=== PATIENT | male | born 1990 | race Caucasian/White ===

== ENCOUNTER 2020-09-28 16:37 | Outpatient (REF) | payer MEDICARE, MEDICAID, SELFPAY | END 2020-09-28 16:38 | disposition home or self-care (01) | LOC: HO.LNP 16:37 | PROVIDERS: Visit Provider Nurse Practitioner Family | DX: Z20.822 Contact with and (suspected) exposure to COVID-19 (principal) | CPT/HCPCS: U0003; U0005 ==

== ENCOUNTER 2021-02-06 07:53 | Outpatient (REF) | payer MEDICARE, MEDICAID, SELFPAY ==
--- NOTE | ~2021-02-06 | MR_ITS ---
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 COMPARISON: 09/24/2016 MRI. TECHNIQUE: Multiplanar multisequence MR imaging of the brain was done without IV contrast. FINDINGS: BRAIN VOLUME: Redemonstrated is disproportionate diffuse cerebral volume loss, similar in appearance to the previous study. No significant volume loss seen involving the midbrain, hosea, medulla or supratentorial brain. STRUCTURAL: No malformations. BRAIN AND MENINGES: DWI sequence demonstrates no restricted diffusion. Specifically, there is no evidence for acute or subacute cerebral ischemia. The brain parenchyma is normal in signal intensity. There is no evidence for hemorrhage, hemosiderin staining or abnormal mineral deposition. No extra-axial fluid collections, space-occupying process or mass effect. VENTRICLES AND SUBARACHNOID SPACES: The ventricular system is within normal limits in appearance without hydrocephalus. Prominent subarachnoid spaces in the posterior fossa are consistent with cerebellar volume loss stable in appearance. ORBITAL STRUCTURES: The visualized orbital structures are grossly unremarkable within the limitations of the study. VASCULAR: Signal voids are noted in the visualized major intracranial vessels. SINUSES AND OSSEOUS STRUCTURES: Unremarkable. MR/MR head/brain wo con IMPRESSION: 1. Redemonstrated is diffuse cerebellar volume loss stable in appearance from previous exam, consistent with diffuse cerebellar atrophy. 2. Otherwise normal exam with no interval change.
[2021-02-06 09:52] LABS: Erythrocyte Sedimentation Rate 2 MM/HR (0-15)
[2021-02-06 10:04] LABS: Folate 19.1 ng/mL (> or = 4.0); Vitamin B12 471 pg/mL (200-900)
[2021-02-08 13:51] LABS: Anti Nuclear Antibody Screen NEGATIVE (NEGATIVE)
[2021-02-10 12:36] LABS: Vitamin C 1.2 mg/dL (0.2-2.1)
[2021-02-10 15:10] LABS: Alpha-Tocopherol 13.2 mg/L (5.7-19.9); Beta-Gamma Tocopherol <1.0 mg/L (<=4.3)
== END 2021-02-06 07:54 | disposition home or self-care (01) ==
LOC: HO.MRI 07:53
PROVIDERS: PCP Nurse Practitioner Family; Visit Provider Psychiatry & Neurology Neurology
DX: G23.8 Other specified degenerative diseases of basal ganglia (principal)
CPT/HCPCS: 36415; 70551; 82180; 82607; 82746; 84446; 85652; 86038; 86039

== ENCOUNTER 2021-08-09 07:03 | Outpatient (REF) | payer MEDICARE, MEDICAID, SELFPAY ==
[2021-08-09 11:56] LABS: Alanine Aminotransferase 31 U/L (0-40); Albumin Level 4.1 g/dL (3.5-5.0); Alkaline Phosphatase 75 U/L (39-117); Anion Gap 10 (12-20); Aspartate Amino Transferase 20 U/L (5-37); Bilirubin Total 0.9 mg/dL (0.0-1.0); Blood Urea Nitrogen 16 mg/dL (9-16); Calcium 8.8 mg/dL (8.4-10.2); Carbon Dioxide 28 mmol/L (22-29); Chloride 107 mmol/L (96-108); Cholesterol 151 mg/dL; Estimated Glomerular Filt Rate > 60; Glucose Fasting 91 mg/dL (60-99); HDL Cholesterol 32 mg/dL; LDL Cholesterol Calculated 99 mg/dl; Potassium 4.4 mmol/L (3.3-5.1); Sodium 141 mmol/L (135-145); Total Protein 6.7 g/dL (6.5-8.0); Triglycerides 104 mg/dL
[2021-08-09 12:01] LABS: TSH reflex Free T4 1.22 uIU/mL (0.32-4.0)
== END 2021-08-09 07:04 | disposition home or self-care (01) ==
LOC: HO.HMGCLDS 07:03
PROVIDERS: PCP Nurse Practitioner Family; Visit Provider Nurse Practitioner Family
DX: Z00.00 Encounter for general adult medical examination without abnormal findings (principal); R29.6 Repeated falls
CPT/HCPCS: 36415; 80053; 80061; 84443

== ENCOUNTER 2021-09-18 11:28 | Outpatient (REF) | payer MEDICARE, MEDICAID, SELFPAY | END 2021-09-18 11:29 | disposition home or self-care (01) | LOC: HO.LNP 11:28 | PROVIDERS: Visit Provider Nurse Practitioner Family | DX: L02.511 Cutaneous abscess of right hand (principal) | CPT/HCPCS: 87071; 87077; 87186; 87205 ==

== ENCOUNTER 2022-07-06 15:55 | Emergency (ER) | payer MEDICARE, MEDICAID, SELFPAY ==
--- NOTE | ~2022-07-06 | XR_ITS ---
EXAMINATION: XR SHOULDER, LEFT CLINICAL INFORMATION: Post reduction shoulder dislocation COMPARISON: Prior exam left shoulder 07/06/2022, 4:24 PM TECHNIQUE: Three views of the left shoulder. XR/XR shoulder LT min 2V FINDINGS/IMPRESSION: There has been successful reduction of shoulder dislocation. No fracture. IMPRESSION: Normal left shoulder.
--- NOTE | ~2022-07-06 | XR_ITS ---
EXAMINATION: XR SHOULDER, LEFT CLINICAL INFORMATION: Left shoulder pain COMPARISON: None available. TECHNIQUE: AP external rotation, Grashey, scapular Y, and axillary views of the left shoulder. FINDINGS: Humeral head is anteriorly dislocated from the glenoid. No acute fracture seen. XR/XR shoulder LT min 2V IMPRESSION: Anterior shoulder joint dislocation
[2022-07-06 16:00] VITALS: BP 135/99; PULSE 69; RESP 16; TEMP 36.7; O2SAT 97; BMI 32.3
--- NOTE | 2022-07-06 16:00 | ED.FALL ---
HPI - Fall General Chief Complaint: Extremity Injury, Upper <DINH Jones Last Filed: 07/06/22 16:04> Stated Complaint: fall, L shoulder pain <DINH Jones Last Filed: 07/06/22 16:04> Time Seen by Provider: 07/06/22 16:23 <DINH Jones Last Filed: 07/06/22 16:04> Source: patient <DINH Sloan Last Filed: 07/07/22 09:27> Mode of arrival: ambulatory <DINH Sloan Last Filed: 07/07/22 09:27> Limitations: no limitations <DINH Sloan Last Filed: 07/07/22 09:27> History of Present Illness HPI Narrative: This is a 32-year-old male History of cerebral ataxia presenting to the ED w/ complaints of left shoulder pain, deformity and innability to move L shoulder s/p fall while at day program and gardening. Patients mom at bed side states he falls alot due to tremors and unsteady gait. Today when he feel he fell right onto his left shoulder and since then has not been able to mvoe it. Denies numbness or tingling. No head strike or LOC, not on thinners. No traumatic injury to chest, abdomen or pelvis. Patient denies CP, sob, headache, vision changes, nausea, vomiting, abd pain GC 15 <DINH Sloan Last Filed: 07/07/22 09:27> Related Data Home Medications: Previous Rx's Medication Instructions Recorded sulfamethoxazole 800 1 tab PO BID 5 days #10 tabs 09/18/21 mg-trimethoprim 160 mg tablet (Bactrim DS) ketorolac 10 mg tablet 10 mg PO TID PRN pain 5 days #15 07/06/22 tabs morphine 15 mg immediate release 15 mg PO Q6H PRN pain 5 days #10 07/06/22 tablet tabs <DINH Jones Last Filed: 07/06/22 16:04> Allergies/Adverse Reactions: Allergies Allergy/AdvReac Type Severity Reaction Status Date / Time No Known Allergies Allergy Verified 09/18/21 08:12 <DINH Jones Last Filed: 07/06/22 16:04> Review of Systems Review of Systems: Constitutional : No Weight loss, No Fever, No Chills, No Fatigue, No Malaise ENT/Mouth : No sore throat, No Rhinorrhea Eyes: No Eye Pain, No Swelling, No Redness Cardiovascular : No Chest Pain, No SOB, No Dyspnea on Exertion, No Orthopnea, No Edema, No Palpitations Respiratory : No Cough, No Sputum, No Wheezing Gastrointestinal : No Nausea, No Vomiting, No Diarrhea, No Constipation, No abdominal Pain, No Hematochezia, No Melena Genitourinary : No Dysuria, No Urinary Frequency, No Hematuria, Musculoskeletal : + joint pain, No Myalgias, + Joint Swelling Skin : No Skin Lesions, No rash Neuro : No Weakness, No Numbness, No Dizziness, No Headache Psych : No Anxiety/Panic, No Depression All other systems reviewed and are negative <DINH Sloan - Last Filed: 07/07/22 09:27> Yes all other systems are reviewed and are negative <DINH Sloan - Last Filed: 07/07/22 09:27> [facility] Past Medical History Attestation statement: The following information was validated with the patient. <DINH Sloan - Last Filed: 07/07/22 09:27> Source: old records reviewed and nursing notes reviewed <DINH Sloan - Last Filed: 07/07/22 09:27> Medical History: Medical History Cerebellar ataxia Cerebellar atrophy Olivopontocerebellar atrophy Sleep walking <DINH Jones - Last Filed: 07/06/22 16:04> Social History Social History: Social History Alcohol intake: never Patient Tobacco Use Status: Never used Tobacco Smoked in Last 30 Days: No Use of substances other than those prescribed or required for medical reasons: No Advance Directives: No Advance Directives Information Provided: No Current occupational status: disabled <DINH Jones Last Filed: 07/06/22 16:04> Physical Exam Vital Signs: Vital Signs: Last Vital Signs Temp 98.6 F 07/06/22 19:58 Pulse 109 H 07/06/22 19:58 Resp 16 07/06/22 19:58 BP 120/77 07/06/22 19:58 Pulse Ox 94 07/06/22 19:58 O2 Del Method Room Air 07/06/22 19:58 BMI result Body Mass Index 32.3 <DINH Jones - Last Filed: 07/06/22 16:04> Vital Signs: Last Vital Signs Temp 98.6 F 07/06/22 19:58 Pulse 109 H 07/06/22 19:58 Resp 16 07/06/22 19:58 BP 120/77 07/06/22 19:58 Pulse Ox 94 07/06/22 19:58 O2 Del Method Room Air 07/06/22 19:58 BMI result Body Mass Index 32.3 vss <DINH Sloan - Last Filed: 07/07/22 09:27> Appearance: Alert.? Oriented X3.? No acute distress.? Head: Normocephalic, atraumatic, no step-offs or deformities Eyes: Pupils equal, round and reactive to light.?EOMI CVS: Normal heart rate and rhythm.? Pulses normal.? Respiratory: No respiratory distress.? Breath sounds normal.? Abdomen: Soft and nontender.? Skin: Skin warm and dry.? Normal skin color.? Normal skin turgor.? Extremities: No lower extremity edema.? No calf ttp. 5/5 strength to bilateral upper and lower extremities 2+ radial pulses equal and b/l. Cap refill < 2 seconds to b/k UE digits. + deformity to L. shoulder. Normal AC joints b/l. Normal handgrip. Normal sensation to b/l UE Back: No midline tenderness, no C-spine tenderness, full range of motion, no CVA tenderness bilaterally Neuro: Oriented X 3.? No motor deficit.? No sensory deficit. CN 2-12 intact. Ambulates w/ tremor but steady gait. 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 At baseline patient unsteady gait. Denies head trauma or LOC +L shoulder deformity., suspected dislocated. NV intact distally XR ordered Full HPI, ROS and PE to be performed by primary ED provider. <DINH Jones - Last Filed: 07/06/22 16:04> Reevaluation(s) Reevaluation #1: Lt shoulder xray with anterior shoulder dislocation. A Left intrarticular block was done to L. shoulder tollerated well. Verbal consent was obtained from patient &mother. Reduction of L shoulder done at the bedside using traction and counter traction w/ gentle external rotation. Patient tolerated well and immediately placed in sling. <DINH Sloan - Last Filed: 07/07/22 09:27> Time: 19:15 <DINH Sloan - Last Filed: 07/07/22 09:27> Reevaluation #2: Successfully reduce left shoulder, patient tolerated procedure well gave a sling. Will have him follow-up with orthopedics <DINH Sloan - Last Filed: 07/07/22 09:27> Medications Administered Discontinued Medications Generic Name Dose Route Start Last Admin Trade Name Freq PRN Reason Stop Dose Admin Ketorolac Tromethamine 30 mg 07/06/22 18:55 07/06/22 19:04 Ketorolac Tromethamine 15 Mg/Ml Vial IVPUSH 07/06/22 18:56 30 mg ONCE ONE Administration Lidocaine HCl 20 ml 07/06/22 18:23 07/06/22 18:45 Lidocaine Hcl 1 % 20 Ml Vial SUBCUT 07/06/22 18:24 20 ml ONCE ONE Administration Lorazepam 1 mg 07/06/22 16:38 07/06/22 16:43 Lorazepam 1 Mg Tablet PO 07/06/22 16:39 1 mg ONCE ONE Administration Morphine Sulfate 4 mg 07/06/22 17:22 07/06/22 17:37 Morphine Sulfate 4 Mg/Ml Cartridge IVPUSH 07/06/22 17:23 4 mg ONCE ONE Administration Protocol <DINH Jones - Last Filed: 07/06/22 16:04> Medications Administered Discontinued Medications Generic Name Dose Route Start Last Admin Trade Name Freq PRN Reason Stop Dose Admin Ketorolac Tromethamine 30 mg 07/06/22 18:55 07/06/22 19:04 Ketorolac Tromethamine 15 Mg/Ml Vial IVPUSH 07/06/22 18:56 30 mg ONCE ONE Administration Lidocaine HCl 20 ml 07/06/22 18:23 07/06/22 18:45 Lidocaine Hcl 1 % 20 Ml Vial SUBCUT 07/06/22 18:24 20 ml ONCE ONE Administration Lorazepam 1 mg 07/06/22 16:38 07/06/22 16:43 Lorazepam 1 Mg Tablet PO 07/06/22 16:39 1 mg ONCE ONE Administration Morphine Sulfate 4 mg 07/06/22 17:22 07/06/22 17:37 Morphine Sulfate 4 Mg/Ml Cartridge IVPUSH 07/06/22 17:23 4 mg ONCE ONE Administration Protocol <DINH Sloan - Last Filed: 07/07/22 09:27> Medical Decision Making Medical Decision Making MDM Narrative: 1820 32 yo M presents w/ R. shoulder pain sp fall onto shoulder, unable to move it. This occured SERVICE ORDER CLERK PE w/ No lower extremity edema.? No calf ttp. 5/5 strength to bilateral upper and lower extremities 2+ radial pulses equal and b/l. Cap refill < 2 seconds to b/k UE digits. + deformity to L. shoulder. Normal AC joints b/l. Normal handgrip. Normal sensation to b/l UE Likely dislocation. Will rule out fx. No signs of threatened limb or NV compromise Plan- imaging <DINH Sloan Last Filed: 07/07/22 09:27> Differential Diagnosis Differential Diagnoses: The differential diagnosis associated with the presentation includes <DINH Sloan Last Filed: 07/07/22 09:27> Likely dislocation. Will rule out fx. No signs of threatened limb or NV compromise <DINH Sloan Last Filed: 07/07/22 09:27> Admission/Observation Consideration of admission/observation: Escalation of care including admission/observation considered <DINH Sloan Last Filed: 07/07/22 09:27> vonnieley <DINH Sloan - Last Filed: 07/07/22 09:27> Independent Interpretation I performed an independent interpretation of an: Plain X-Ray <DINH Sloan - Last Filed: 07/07/22 09:27> Radiology Impression Discussion of test interpretation with radiology: I have reviewed the radiologist's reading. <DINH Sloan - Last Filed: 07/07/22 09:27> Prescription Management I considered prescription management with: Pain Medication <DINH Sloan - Last Filed: 07/07/22 09:27> Core Measures AMI core measures followed: Yes <DINH Sloan - Last Filed: 07/07/22 09:27> Measure exclusions: not indicated <DINH Sloan - Last Filed: 07/07/22 09:27> Discharge Plan Discharge Clinical Impression: Anterior shoulder dislocation <DINH Jones Last Filed: 07/06/22 16:04> Patient Disposition: Home, Self-Care <DINH Jones Last Filed: 07/06/22 16:04> Instructions: Shoulder Dislocation (ED), How to Use a Sling (ED), R.I.C.E. Treatment (ED), Shoulder Immobilizer (ED) <DINH Jones Last Filed: 07/06/22 16:04> Additional Instructions: Take your medications as prescribed. If you were prescribed antibiotics today, it is important that you take your medication to their entirety, do not skip any doses, do not finish them early. Follow-up with your primary care provider this week. Call orthopedics on Friday to anaid otero. Return to the emergency department with new or worsening symptoms. numbness, tingling, pain, swelling, fever In case of emergency call 911 Toradol has been sent to your pharmacy, you tolerated this well in the department. Please take this as prescribed do not take this with ibuprofen, or other NSAIDs, do not mix this with alcohol. Side effects of this medication including increased risk for bleeding and possible kidney injury. A narcotic has been sent to your pharmacy please take this as prescribed. Do not take more than the prescribed dose. Narcotic medications can cause addiction. Please do not mix them with alcohol. Do not take them while driving or operating machinery. Do not take them with any other narcotics. Do not share them with friends or family. They can cause constipation. Take them only for severe pain. Do not sleep with the sling on, elevate arm on pillows at night. ?XR/XR shoulder LT min 2V ( before) IMPRESSION: Anterior shoulder joint dislocation XR/XR shoulder LT min 2V (after) FINDINGS/IMPRESSION: There has been successful reduction of shoulder dislocation. No fracture.? ? IMPRESSION: Normal left shoulder. <DINH Jones - Last Filed: 07/06/22 16:04> Prescriptions: New ketorolac 10 mg tablet 10 mg PO TID PRN (Reason: pain) 5 Days Qty: 15 0RF morphine 15 mg tablet 15 mg PO Q6H PRN (Reason: pain) 5 Days Qty: 10 0RF Rx Instructions: Partial Fill upon patient request. No Action sulfamethoxazole-trimethoprim [Bactrim DS] 800-160 mg tablet 1 tab PO BID 5 Days Qty: 10 0RF <DINH Jones - Last Filed: 07/06/22 16:04> Referrals: [facility] [Provider Group] - 2 days Physician,Unknown J [Primary Care Provider] - 2 days <DINH Jones - Last Filed: 07/06/22 16:04> Stand Alone Forms: Work/School Release <DINH Jones - Last Filed: 07/06/22 16:04> Interventions: ED Discharge Assessment Last Done: 07/06/22 21:17 <DINH Jones - Last Filed: 07/06/22 16:04> Discharge Date/Time: 07/06/22 21:20 <DINH Jones - Last Filed: 07/06/22 16:04>
--- NOTE | 2022-07-06 16:38 | PC.NURSE ---
pt axo4, vss, reporting 10/10 left shoulder pain after fall at group program while gardening, difficultly moving, denies any other injuries from fall. resting quietly with mother at bedside, pt pending XR result.
[2022-07-06] MEDS: LORazepam 1 MG TABLET PO (16:43)
--- NOTE | 2022-07-06 16:52 | PC.NURSE ---
pt medicated per ALMA, 20G IV placed right AC.
[2022-07-06] MEDS: Morphine Sulfate 4 MG/ML CARTRIDGE IVPUSH (17:37)
--- NOTE | 2022-07-06 17:43 | PC.NURSE ---
pt medicated per MAY for 10/10 left shoulder pain, resting quietly watching TV.
[2022-07-06] MEDS: Lidocaine HCl 1 % 20 ML VIAL SUBCUT (18:45)
[2022-07-06] MEDS: Ketorolac Tromethamine 15 MG/ML VIAL 30 MG IVPUSH (19:04)
[2022-07-06 19:58] VITALS: BP 120/77; PULSE 109; RESP 16; TEMP 37; O2SAT 94
--- NOTE | 2022-07-06 21:17 | PC.NURSE ---
pt was unsteady on his feet at discharged, assisted into wheelchair and mother's car.
== END 2022-07-06 21:20 | disposition home or self-care (01) ==
PROVIDERS: Emergency Provider Student in an Organized Health Care Education/Training Program
DX: S43.005A Unspecified dislocation of left shoulder joint, initial encounter (principal); W17.89XA Other fall from one level to another, initial encounter; Y93.H2 Activity, gardening and landscaping; Y92.210 Daycare center as the place of occurrence of the external cause; Y99.9 Unspecified external cause status
CPT/HCPCS: 23655; 73030; 99284; 99285; J1885; J2270

== ENCOUNTER 2022-10-21 16:12 | Outpatient (AMB) | payer MEDICARE, MEDICAID, SELFPAY ==
--- NOTE | 2022-10-21 16:25 | AM.OFFWIN_ITS ---
Intake Vital Signs 10/21/22 16:38 Weight 193 lb BP 110/74 Blood Pressure Location Rt brachial Pulse 96 Pulse Source Pulse Oximeter Pulse Oximetry (%) 97 Oxygen Delivery Method Room Air Intake Visit Reasons: EP, Pain in Left shoulder Intake Note: Patient here for left shoulder pain. states he dislocated it a couple months back and then re-injured it and was assesed and dr stated he had good ROM but pt states it still feels very sore Patient Tobacco Use Status: Never used Tobacco Allergies No Known Allergies Allergy (Verified 10/22/22 09:11) Medication List - Last Reconciled 10/22/22 by Aaron Salinas MD No Known Home Meds Do you need a note to return to daycare/school/sports/work: No HPI EP, Pain in Left shoulder HPI Details 32-year-old male presents to the office for a sick visit with his father. Father is speaking on his behalf. Patient had a dislocation of the left shoulder a few months ago which was put back in. Patient reports he may have occasional pain and the father is requesting for physical therapy [facility] Medical History Cerebellar ataxia Cerebellar atrophy Dislocation of left shoulder joint Olivopontocerebellar atrophy Sleep walking Social History Housing: House Alcohol intake: never Patient Tobacco Use Status: Never used Tobacco e-Cigarette/Vaping Use: Never Used Second Hand Smoke Exposure: No Current occupational status: disabled Cognitive needs: No Hearing needs: No Vision needs: No Physical Exam Vital Signs: Last Vital Signs Pulse 96 10/21/22 16:38 BP 110/74 10/21/22 16:38 Pulse Ox 97 10/21/22 16:38 Oxygen Delivery Method Room Air 10/21/22 16:38 Extrem Other: Left shoulder: No AC joint tenderness. No visible swelling or bruising. Full range of motion with minimal discomfort. Assessment & Plan Assessment & Plan (1) Left shoulder strain: Code(s): S46.912A - Strain of unspecified muscle, fascia and tendon at shoulder and upper arm level, left arm, initial encounter Plan: Physical therapy ordered. Orders: Orders PT Evaluation and Treatment 08/21/23 S46.912A - Strain of unspecified muscle, fascia and tendon at shoulder and upper arm level, left arm, initial encounter Coding Level of Care Code Est Pt Level 3 (00158) Diagnoses Left shoulder strain S46.912A
[2022-10-21 16:38] VITALS: BP 110/74; PULSE 96; O2SAT 97
== END 2022-10-21 16:45 | disposition home or self-care (01) ==
PROVIDERS: PCP Nurse Practitioner Family; Visit Provider Internal Medicine
DX: S46.912A Strain of unspecified muscle, fascia and tendon at shoulder and upper arm level, left arm, initial encounter (principal)
CPT/HCPCS: 99213

== ENCOUNTER 2023-03-13 12:51 | Outpatient (AMB) | payer MEDICARE, MEDICAID, SELFPAY ==
--- NOTE | 2023-03-13 13:11 | MHC.PC.OV ---
Vital Signs 03/13/23 13:13 Height 5 ft 5 in Weight 197 lb BMI 32.8 BP 106/74 Blood Pressure Location Lt brachial Position Sitting Pulse 78 Pulse Source Pulse Oximeter Pulse Oximetry (%) 98 Oxygen Delivery Method Room Air Intake Visit Reasons: 4 Month follow up ( Meds ) Intake Note: Patient here for cerebellar ataxia follow up. Allergies No Known Allergies Allergy (Verified 03/13/23 13:14) Tobacco use date assessed: 03/13/23 Dental Screening Dental Screen Date: 03/13/23 Did you have a dental visit in the last 12 months?: Yes Did you have a dental problem in the last 6 months where you did not have access to dental care?: No Was dental information given to patient?: Patient has dentist HPI 4 Month follow up ( Meds ) HPI Details Pt recently fell on his left shoulder causing a dislocation. Pt's father reports that he saw an ortho specialist, missing notes. This is the second time pt has dislocated his left shoulder. He would like to return to work next week and needs a note, will write. Denies fever, chills, and dizziness. Reports full ROM to Sj. [facility] Medical History (Updated 03/13/23 @ 13:47 by Selvin Vang [facility]) Dislocation of left shoulder joint Sleep walking Cerebellar ataxia Cerebellar atrophy Olivopontocerebellar atrophy Social History Housing: House Alcohol intake: never Patient Tobacco Use Status: Never used Tobacco e-Cigarette/Vaping Use: Never Used Second Hand Smoke Exposure: No Current occupational status: disabled Cognitive needs: No Hearing needs: No Vision needs: No Questionnaire Thrive Questionnaire Date Thrive assessed: 05/28/21 AUDIT C Alcohol Use Questionnaire (AUDIT-C) 1. How often do you have a drink containing alcohol?: Never 3. How often do you have six or more drinks on one occasion?: Never Total Score: 0 Score Reviewed/Action Taken: No MYRIAM-7 AMB Questionnaire MYRIAM-7 Date MYRIAM - 7 assessed: 05/28/21 Source: Developed by Drs. Dav Caballero, Mandy Sadler, Tristan Hale and colleagues, with an educational sugey from [employer]. Review of Systems Const Reports as per HPI Physical exam (Primary Care) Vital Signs: Last Vital Signs Pulse 78 03/13/23 13:13 BP 106/74 03/13/23 13:13 Pulse Ox 98 03/13/23 13:13 Oxygen Delivery Method Room Air 03/13/23 13:13 BMI result Body Mass Index 32.8 Tobacco/Smoking Status: Tobacco use Status Tobacco use date assessed 03/13/23 03/13/23 13:17 Patient Tobacco Use Status Never used Tobacco 03/13/23 13:12 e-Cigarette/Vaping Use Never Used 03/13/23 13:12 Thrive Assessment: Date of Thrive Assessment Date Thrive assessed 05/28/21 03/13/23 13:12 Const General: cooperative Nutritional Appearance: obese Orientation/consciousness: patient oriented x3 Resp Effort & Inspection: normal respiratory effort Auscultation: clear to auscultation bilaterally Cardio Rate: regular rate Rhythm: regular rhythm Heart sounds: S1 normal heart sound present and S2 normal heart sound present Neuro General: patient oriented x3 Extrem Other: full ROM to LUE without pain Psych Appearance: grossly normal Speech and movement: Normal speech and movement present Affect: normal affect Attitude: cooperative Assessment and Plan Assessment & Plan (1) Dislocation of left shoulder joint: Code(s): S43.005A - Unspecified dislocation of left shoulder joint, initial encounter Plan The patient agreed to the use of a medical technologist microbiology for this encounter. Scribed for KENNEDY Clinton by Earlene Sultana medical technologist microbiology, on 03/13/2023 at 13:25 EST. Coding Level of Care Code Est Pt Level 3 (40500) Diagnoses Dislocation of left shoulder joint S43.005A
[2023-03-13 13:13] VITALS: BP 106/74; PULSE 78; O2SAT 98; BMI 32.8
== END 2023-03-13 13:46 | disposition home or self-care (01) ==
PROVIDERS: PCP Nurse Practitioner Family; Visit Provider Nurse Practitioner Family
DX: S43.005A Unspecified dislocation of left shoulder joint, initial encounter (principal)
CPT/HCPCS: 99213

== ENCOUNTER 2023-07-31 16:09 | Outpatient (AMB) | payer MEDICARE, MEDICAID, SELFPAY ==
[2023-07-31 16:10] VITALS: BP 112/76; PULSE 74; O2SAT 98; BMI 33.3
--- NOTE | 2023-07-31 16:10 | A.OFFPC_ITS ---
Vital Signs 07/31/23 16:10 Height 5 ft 5 in Weight 200 lb BMI 33.3 BP 112/76 Blood Pressure Location Rt brachial Position Sitting Pulse 74 Pulse Source Pulse Oximeter Pulse Oximetry (%) 98 Oxygen Delivery Method Room Air Intake Visit Reasons: Annual PE Intake Note: Patient here for physical exam. Allergies No Known Allergies Allergy (Verified 07/31/23 16:27) Medication List - Last Reconciled 07/31/23 by KENNEDY Ojeda No Known Home Meds Tobacco use date assessed: 03/13/23 Dental Screening Dental Screen Date: 03/13/23 HPI Annual PE HPI Details Pt is here for a PE. Will order labs. Pt has a hx of cerebellar ataxia, cerebellar atrophy, and olivopontocerebellar atrophy. Pt is following up with neurology. Pt's father is present in the room today. Pt has tinea vesicolor to his right upper shoulder, back, and chest. Will send ketoconazole. [facility] Medical History Dislocation of left shoulder joint Sleep walking Cerebellar ataxia Cerebellar atrophy Olivopontocerebellar atrophy Social History Housing: House Alcohol intake: never Patient Tobacco Use Status: Never used Tobacco e-Cigarette/Vaping Use: Never Used Second Hand Smoke Exposure: No Current occupational status: disabled Cognitive needs: No Hearing needs: No Vision needs: No Questionnaire PHQ-9 Over the last 2 weeks, how often have you been bothered by any of the following problems? 92421 - PHQ-9 Billing: Patient declined-do not bill Source: Developed by Drs. Dav Caballero, Mandy Sadler, Tristan Hale and colleagues, with an educational sugey from [employer]. Thrive Questionnaire Date Thrive assessed: 05/28/21 MYRIAM-7 AMB Questionnaire MYRIAM-7 Date MYRIAM - 7 assessed: 05/28/21 Source: Developed by Drs. Dav Caballero, Mandy Sadler, Tristan Hale and colleagues, with an educational sugey from [employer]. MYRIAM-7 Assessment Billing MYRIAM-7 Assessment Tool: pt declined-do not bill Review of Systems Const Denies chills and Denies fever(s) Eyes Denies blurry vision ENT Denies vertigo, Denies dizziness and Denies sore throat Card Denies chest pain at rest, Denies chest pain with activity, Denies diaphoresis, Denies dyspnea and Denies dyspnea on exertion Resp Denies cough, Denies dyspnea, Denies dyspnea on exertion and Denies wheezing GI Denies abdominal pain, Denies melena, Denies hematochezia, Denies constipation, Denies diarrhea and Denies loose stools Denies hematuria Musc Denies numbness and Denies tingling Skin/Breast Denies lesions Neuro Denies vertigo, Denies dizziness, Denies numbness and Denies tingling Psych Denies anxiety, Denies depression, Denies homicidal ideation, Denies suicidal ideation and Denies other (substance abuse) Aller/Immun Denies wheezing Physical exam (Primary Care) Vital Signs: Last Vital Signs Pulse 74 07/31/23 16:10 BP 112/76 07/31/23 16:10 Pulse Ox 98 07/31/23 16:10 Oxygen Delivery Method Room Air 07/31/23 16:10 BMI result Body Mass Index 33.3 Tobacco/Smoking Status: Tobacco use Status Tobacco use date assessed 03/13/23 07/31/23 16:10 Patient Tobacco Use Status Never used Tobacco 07/31/23 16:10 e-Cigarette/Vaping Use Never Used 07/31/23 16:10 Thrive Assessment: Date of Thrive Assessment Date Thrive assessed 05/28/21 07/31/23 16:10 Const Other: spastic gait General: cooperative Nutritional Appearance: well nourished Orientation/consciousness: patient oriented x3 HENMT Head: Yes normal to inspection, Yes normocephalic and Yes atraumatic Ears: TM's normal bilaterally Eyes General: appearance normal, both eyes and all related structures Alignment and Position: alignment normal and position normal Neck Neck: Yes normal visual inspection and Yes no lymphadenopathy Thyroid: Thyroid normal Resp Effort & Inspection: normal respiratory effort Auscultation: clear to auscultation bilaterally Cardio Rate: regular rate Rhythm: regular rhythm Heart sounds: S1 normal heart sound present, S2 normal heart sound present and no murmurs GI Palpation (GI): Soft to palpation and nontender Auscultation: normal bowel sounds Male General Exam: Yes normal external exam Penis: normal penis Scrotum: scrotum normal, testes descended bilaterally and no inguinal hernias Testes: no testicular mass Skin Other: small singular lesions to right upper shoulder, back, and chest (tinea vesicolor) Neuro General: patient oriented x3, moves all extremities, no focal motor deficits and deep tendon reflexes 2+ bilaterally Romberg Test: Negative Psych Other: developmental disorder noted Appearance: grossly normal Speech and movement: Clear speech present Affect: normal affect Attitude: cooperative Assessment and Plan Assessment & Plan (1) Encounter for routine adult physical exam with abnormal findings: Code(s): Z00.01 - Encounter for general adult medical examination with abnormal findings Plan The patient agreed to the use of a medical assistant ob gyn for this encounter. Scribed for KENNEDY Clinton by Earlene Sultana medical assistant ob gyn, on 07/31/2023 at 16:25 EST. Orders: Orders Complete Blood Count Auto Diff Today Z00.00 - Encounter for general adult medical examination without abnormal findings Comprehensive [place]. Panel Fast Today Z00.00 - Encounter for general adult medical examination without abnormal findings TSH reflex Free T4 Today Z00.00 - Encounter for general adult medical exam ination without abnormal findings UA CC w/rflx Micro + Cult Today Z00.00 - Encounter for general adult medical examination without abnormal findings Lipid Panel Today Z00.00 - Encounter for general adult medical examination without abnormal findings Medications: New ketoconazole 2% 1 appl topical BID 60 grams 0RF Coding Level of Care Code Est Pt Prev Care 18-39y(43400) Diagnoses Encounter for routine adult physical exam with abnormal findings Z00.01
== END 2023-07-31 16:42 | disposition home or self-care (01) ==
LOC: HO.HMGC 16:09
PROVIDERS: PCP Nurse Practitioner Family; Visit Provider Nurse Practitioner Family
DX: Z00.00 Encounter for general adult medical examination without abnormal findings (principal)
CPT/HCPCS: 99395

== ENCOUNTER 2024-04-26 10:14 | Outpatient (AMB) | payer MEDICARE, MEDICAID, SELFPAY ==
--- OUTSIDE RECORDS SUMMARY | 2024-04-26 11:25 | XMS_ITS | Clinical Summary ---
Author Organization [facility] ity Address [address] [place] [address] Care Team Providers Care Wafer Fab Operator Name Role Phone Unavailable Primary Care Provider Unavailabl e Social History Tobacco Use Types Packs/Day Years Used Date Smoking Tobacco: Never Assessed Sex and Gender Information Value Date Recorded Sex Assigned at Not on file Legal Sex Male 2:06 PM EST Gender Identity Not on file Sexual Orientation Not on file Plan of Treatment Health Maintenance Due Date Last Done Comments DTaP,Tdap,and Td Vaccines (1 - Tdap) 2009 Hepatitis B Vaccines (1 of 3 - 19+ 3-dose series) 2009 Depression Screening 04/01/2023 HIV Screening 04/01/2023 Hepatitis C Screening 04/01/2023 Social Influencers of Health Screening 04/01/2023 COVID-19 Vaccine ( - 2023-2 5 season) 2023 Influenza Vaccine (#1) 2023 HIB Vaccines Aged Out No longer eligi ble based on patient's age to complete this topic HPV Vaccines Aged Out No longer eligi ble based on patient's age to complete this topic Hepatitis A Vaccines Aged Out No long er eligible based on patient's age to complete this topic IPV Vaccines Aged Out No longer eligi ble based on patient's age to complete this topic MMR Vaccines Aged Out No longer eligi ble based on patient's age to complete this topic Meningococcal ACWY Vaccine Aged Out N o longer eligible based on patient's age to complete this topic Meningococcal B Vacine Aged Out No lo nger eligible based on patient's age to complete this topic Pneumococcal Vaccine: Pediat rics (0 to 5 Years) and At-Risk Patients (6 to 64 Years) Aged Out No longer eligible b ased on patient's age to complete this topic RSV Immunization Patients Un landry 20 months Aged Out No longer eligible b ased on patient's age to complete this topic Varicella Vaccines Aged Out No longer eligible based on patient's age to complete this topic
--- NOTE | 2024-04-26 11:51 | MHC.OFFWIV ---
Intake Vital Signs 04/26/24 11:52 Height 5 ft 5 in Weight 200 lb BMI 33.3 BP 118/76 Blood Pressure Location Lt brachial Position Sitting Pulse 80 Pulse Source Pulse Oximeter Temp 97.9 F Temp Source Oral Pulse Oximetry (%) 98 Intake Visit Reasons: EP LT ankle sprain? [phone] Patient Tobacco Use Status: Never used Tobacco Allergies No Known Allergies Allergy (Verified 04/26/24 11:52) Do you need a note to return to daycare/school/sports/work: Yes HPI HPI Comments History of Present Illness Details History of Present Illness - The patient is a 33-year-old male with his mother presenting with left ankle pain and instability following a fall 2 days ago. - Developmental delays lead to noticeable unsteadiness, causing frequent falls. - Previous fall resulted from balance issues. His mom states he has had about 20 falls in the last year. - Slight reduction in swelling observed, managed initially with ice and ibuprofen. - Persistent ankle discomfort has restricted ambulation without significant improvement. Physical Exam General: Cooperative, healthy appearing, comfortable, no acute distress and well developed Orientation: Patient oriented x3 Limitations: Unsteady on feet, balance issues noted Head: Normal to inspection Ears: Hearing grossly normal bilaterally Nose: Normal external nose present Face and sinus: Normal facial exam Eyes: Appearance normal, both eyes and all related structures Neck: Normal visual inspection and Yes full ROM Respiratory: Normal respiratory effort and able to speak in complete sentences. Skin: No rashes or lesions noted Neuro: Patient oriented x3 Extremities: as below [facility] Medical History Dislocation of left shoulder joint Sleep walking Cerebellar ataxia Cerebellar atrophy Olivopontocerebellar atrophy Social History Housing: House Alcohol intake: never Patient Tobacco Use Status: Never used Tobacco e-Cigarette/Vaping Use: Never Used Second Hand Smoke Exposure: No Current occupational status: disabled Cognitive needs: No Hearing needs: No Vision needs: No Review of Systems Const All systems reviewed & are unremarkable except as noted in HPI and below Physical Exam Vital Signs: Last Vital Signs Temp 97.9 F 04/26/24 11:52 Pulse 80 04/26/24 11:52 BP 118/76 04/26/24 11:52 Pulse Ox 98 04/26/24 11:52 BMI result Body Mass Index 33.3 Extrem Left lower extremity: ankle Details: abnormal to inspection (lateral swelling), tenderness Location: of the lateral malleolus, swelling Details: laterally and normal ROM; no warmth, no abrasions, no lacerations, no ecchymosis and achilles tendon exam normal Assessment & Plan Assessment & Plan (1) Left ankle sprain: Code(s): S93.402A - Sprain of unspecified ligament of left ankle, initial encounter Qualifiers: Encounter type: initial encounter Involved ligament of ankle: calcaneofibular ligament Qualified Code(s): S93.412A - Sprain of calcaneofibular ligament of left ankle, initial encounter Plan: The treatment plan for the diagnosed ankle sprain involves rest, elevation, and the use of a compression wrap for support. Ice application and naproxen sodium every 12 hours are advised over ibuprofen for improved inflammation control. Sent PCP note to address balance and gait improvements, aiming to prevent future falls. The patient is instructed to restrict weight-bearing activities temporarily for recovery purposes. Patient was informed and verbally consented to the use of an ambient scribe for clinic note documentation during this visit. Coding Level of Care Code Est Pt Level 4 (48844) Diagnoses Sprain of calcaneofibular ligament of left ankle, initial encounter S93.412A Encounter type: initial encounter Involved ligament of ankle: calcaneofibular ligament
[2024-04-26 11:52] VITALS: BP 118/76; PULSE 80; TEMP 36.6; O2SAT 98; BMI 33.3
== END 2024-04-26 12:22 | disposition home or self-care (01) ==
PROVIDERS: PCP Nurse Practitioner Family; Visit Provider Physician Assistant
DX: S93.412A Sprain of calcaneofibular ligament of left ankle, initial encounter (principal)

== ENCOUNTER → 2024-04-26 10:14 | Outpatient (BNVA) | payer MEDICARE, MEDICAID, SELFPAY | PROVIDERS: PCP Nurse Practitioner Family | DX: S93.412A Sprain of calcaneofibular ligament of left ankle, initial encounter (principal) | CPT/HCPCS: 99212 ==